=== PATIENT | male | born 1955 | race Caucasian/White ===

== ENCOUNTER 2021-04-30 03:09 | Observation (INO) ==
[2021-04-30] MEDS ORDERED: Ondansetron 4 MG/2 ML VIAL IVP PRN (08:34)
[2021-04-30] MEDS ORDERED: Naloxone 0.4 MG/ML INJ IVP PRN (08:34)
[2021-04-30] MEDS ORDERED: Ringers Solution, Lactated 1,000 ML IVC SCH (08:45)
[2021-04-30] MEDS ORDERED: Nitroglycerin 0.4 MG TAB.SUBL SL PRN (08:53)
[2021-04-30] MEDS ORDERED: Isovue-370 500 ML BOTTLE IVP ONE (08:53)
[2021-04-30] MEDS: Pantoprazole 40 MG VIAL IVP SCH (09:56)
[2021-04-30 09:57] LABS: Amylase 33 Units/L (29-103); Lipase 14 Units/L (11-82)
[2021-04-30 10:05] LABS: Troponin I < 0.03 ng/mL (< 0.04)
[2021-04-30] MEDS ORDERED: *HR* FentaNYL (PF) 100 MCG/2 ML VIAL ONE (10:15)
[2021-04-30] MEDS ORDERED: *HR* Midazolam HCl 5 MG/5 ML VIAL IVP ONE ×2 (10:16→10:33)
[2021-04-30] MEDS ORDERED: *HR* FentaNYL (PF) 100 MCG/2 ML VIAL IVP ONE (10:33)
[2021-04-30] MEDS: *HR* Heparin 5,000 UNIT/ML VIAL SQ SCH ×2 (16:50→21:06)
[2021-05-01 02:10] LABS: Basophils % 0.2 %; Eosinophils # 0.3 K/mcL (0.0-0.6); Eosinophils % 3.2 %; Hematocrit 45.8 % (37.5-50.1); Hemoglobin 15.8 g/dL (12.9-16.9); Immature Granulocytes % 0.2 % (0-4); Lymphocytes # 3.2 K/mcL (0.6-4.6); Lymphocytes % 35.5 %; Mean Corpuscular HGB Conc 34.5 g/dL (31.6-35.5); Mean Corpuscular Hemoglobin 31.5 pg (28.0-33.3); Mean Corpuscular Volume 91.4 fL (83.0-100.0); Mean Platelet Volume 8.7 fL (9.4-12.4); Monocytes # 0.6 K/mcL (0.0-1.3); Monocytes % 6.9 %; Neutrophils # 4.8 K/mcL (1.6-8.9); Platelet Count 301 K/mcL (140-400); Red Blood Count 5.01 M/mcL (4.19-5.50); Red Cell Distribution Width 13.5 % (11.5-14.5)
[2021-05-01 02:31] LABS: BUN/Creatinine Ratio 27 (6-26); Blood Urea Nitrogen 33 mg/dL (8-23); Carbon Dioxide 22 mEq/L (23-29); Chloride 105 mEq/L (98-107); Glucose 107 mg/dL (70-105); Osmolality,Calculated 288 (280-300); Phosphorous 3.1 mg/dL (2.7-4.5); Potassium 3.4 mEq/L (3.5-5.1); Sodium 135 mEq/L (136-145); eGFR For African Americans > 60 (> 60); eGFR For Non-African Americans 59 (> 60)
[2021-05-01] MEDS: *HR* Heparin 5,000 UNIT/ML VIAL SQ SCH (05:25)
[2021-05-01] MEDS: Pantoprazole 40 MG VIAL IVP SCH (08:28)
[2021-05-01] MEDS ORDERED: Potassium Chloride Elixir 20 MEQ/15 ML UDC PO ONE (09:12)
[2021-05-01 10:30] VITALS: BP 112/66; PULSE 72; TEMP 98.4; O2SAT 97
== END 2021-05-01 11:58 | disposition home or self-care (01) ==
LOC: 3BNU → SUATTDRO 07:57
PROVIDERS: ADMIT Internal Medicine; ATTEND Internal Medicine